=== PATIENT | female | born 1970 | race Caucasian/White ===

== ENCOUNTER 2017-09-04 13:11 | Inpatient (IN) | payer OTHER ==
[~2017-09-04] VITALS: Ht 157.5 cm; Wt 121.1 kg
[~2017-09-04 13:11] MED LIST: ABILIFY5 MG PO; ADVAIR 100/501 DISK IH; ALBUTEROL1 GM MC; ALDACTONE25 MG PO; ALDACTONE50 MG PO; ALPRAZOLAM ER3 MG PO; AMBIEN CR12.5 MG PO; CLOPIDOGREL75 MG PO; COREG12.5 M1 PO; COREG25 MG PO; CYCLOBENZAPRINE10 MG PO; FLEXERIL10 MG PO; FLONASE ALLERG9.9 ML BOTH NARES; LORATADINE10 M2 PO; LYRICA75 MG PO; NORVASC5 MG PO; OXYCODONE HCL10 MG PO; OXYCODONE HCL5 MG PO; OXYCODONE-APAP1 EACH PO; PERCOCET 5/31 TABLET PO; PLAVIX75 MG PO; PREDNISONE20 MG PO; PRINIVIL10 MG PO; PRINIVIL5 MG PO; PROAIR HFA8.5 GM IH; RANITIDINE HCL300 MG PO; SAPHRIS10 MG SL; SAPHRIS5 MG SL; SYMBICORT60 INHALAT IH; VENTOLIN HFA18 GM IH; VERAPAMIL ER100 MG PO; WELLBUTRIN SR200 MG PO; WELLBUTRIN100 MG PO; XANAX XR3 MG PO; XANAX0.5 MG PO; XANAX1 MG PO; ZOLPIDEM TART12.5 MG PO
[2017-09-04 13:58] LABS: BASOPHIL (%) 0.3 % (0-1); BASOPHIL COUNT 0.1 K/uL (0-0.1); EOSINOPHIL (%) 0.1 % (0-5); HEMATOCRIT 34.5 % (36.0-46.0); HEMOGLOBIN 11.5 G/DL (11.9-15.5); IMMATURE GRANULOCYTE (%) 0.7 % (0.0-0.7); LYMPHOCYTE (%) 9.3 % (15-42); LYMPHOCYTE COUNT 1.6 K/uL (1.0-2.8); MCH 29.9 PG (29.0-34.0); MCHC 33.3 G/DL (30.0-36.0); MCV 89.8 FL (83-99); MONOCYTE (%) 10.5 % (3-12); MONOCYTE COUNT 1.8 K/uL (0-0.8); NEUTROPHIL (%) 79.1 % (45-76); NEUTROPHIL COUNT 13.1 K/uL (1.8-6.4); PLATELET COUNT 195 K/uL (156-360); RBC DIS.WIDTH-CV 12.7 % (11.8-14.6); RBC DIS.WIDTH-SD 41.4 % (39-53); RED BLOOD COUNT 3.84 M/uL (3.80-5.20); WHITE BLOOD COUNT 16.6 K/uL (4.1-10.2)
[2017-09-04 14:04] LABS: INTER. NORMALIZED RATIO 1.3
[2017-09-04 14:07] LABS: PTT 36.3 SEC (25-37)
[2017-09-04 14:16] LABS: ALBUMIN 3.3 g/dL (3.2-4.8); CHLORIDE 97 mEq/L (99-109); POTASSIUM 4.2 mEq/L (3.7-5.4); SODIUM 128 mEq/L (136-147)
[2017-09-04 14:19] LABS: GLUCOSE 107 mg/dL (70-99); TOTAL PROTEIN 6.5 g/dL (6.4-8.3)
[2017-09-04 14:21] LABS: TOTAL BILIRUBIN 0.7 mg/dL (0.0-1.0)
[2017-09-04 14:22] LABS: ALKALINE PHOSPHATASE 78 IU/L (3-129); CREATININE 2.1 mg/dL (0.6-1.3); GFR ESTIMATE (CALCULATED) 27 mL/min/
[2017-09-04 14:23] LABS: UREA NITROGEN (BUN) 28 mg/dL (9-23)
[2017-09-04 14:24] LABS: AST (GOT) 10 IU/L (2-34)
[2017-09-04 14:25] LABS: ALT (GPT) 13 IU/L (3-49)
[2017-09-04 14:26] LABS: LIPASE 11 U/L (1.0-51.0)
[2017-09-04 14:47] LABS: APPEARANCE CLOUDY ((CLEAR)); BILIRUBIN NEGATIVE; BLOOD SMALL; COLOR AMBER ((YELLOW)); GLUCOSE (STRIP) NEGATIVE; KETONES NEGATIVE; LEUKOCYTES LARGE; NITRITE NEGATIVE; PROTEIN (STRIP) 30; SPECIFIC GRAVITY 1.013 (1.000-1.030); UROBILINOGEN 0.2 MG/DL (0.2-1.0)
[2017-09-04 14:49] LABS: TROP-I INTERPRETATION NEGATIVE; TROPONIN-I 0.01 ng/mL (0.0-0.30)
[2017-09-04 15:22] LABS: BACTERIA RARE /HPF; CALCIUM OXALATE CRYSTALS 1+ /HPF; CELLULAR CASTS 0-5 /LPF; EPITHELIAL CELLS 1+ /HPF; HYALINE CASTS TNTC /LPF; MUCUS TRACE /LPF; RED BLOOD CELLS 20-30 /HPF (0-5); UCUL ADDED? YES; WHITE BLOOD CELLS TNTC /HPF (0-5)
[2017-09-04] MEDS ORDERED: FLEXERIL10 MG PO (19:08)
[2017-09-04] MEDS ORDERED: CARVEDILOL25 MG PO (19:13)
[2017-09-04] MEDS ORDERED: ALPRAZOLAM0.5 MG PO (19:14)
[2017-09-04] MEDS ORDERED: SAPHRIS5 MG SL (19:15)
[2017-09-04] MEDS ORDERED: NARCAN4 MG NS (19:17)
[2017-09-04] MEDS ORDERED: OXYCODONE-APAP1 EAC6 PO (19:17)
[2017-09-04] MEDS ORDERED: LISINOPRIL10 MG PO (19:18)
[2017-09-04] MEDS ORDERED: SPIRONOLACTONE25 MG PO (19:19)
[2017-09-04] MEDS ORDERED: FLUTICASONE P15.8 ML BOTH NARES (19:19)
[2017-09-04 20:50] VITALS: BP 101/63
[2017-09-04 23:40] VITALS: BP 102/57
[2017-09-05 03:49] VITALS: BP 94/52
[2017-09-05 06:45] VITALS: BP 121/57
[2017-09-05 07:00] LABS: CHLORIDE 105 MEQ/L (99-109); GLUCOSE 100 mg/dL (70-99); POTASSIUM 4.4 MEQ/L (3.7-5.4); UREA NITROGEN (BUN) 23 mg/dL (9-23)
[2017-09-05 07:01] LABS: BASOPHIL (%) 0.4 % (0-1); EOSINOPHIL (%) 0.3 % (0-5); HEMATOCRIT 28.6 % (36.0-46.0); HEMOGLOBIN 9.5 G/DL (11.9-15.5); IMMATURE GRANULOCYTE (%) 0.4 % (0.0-0.7); LYMPHOCYTE COUNT 1.3 K/uL (1.0-2.8); MCH 30.1 PG (29.0-34.0); MCHC 33.2 G/DL (30.0-36.0); MCV 90.5 FL (83-99); MONOCYTE (%) 12.2 % (3-12); MONOCYTE COUNT 1.2 K/uL (0-0.8); NEUTROPHIL (%) 73.7 % (45-76); NEUTROPHIL COUNT 7.2 K/uL (1.8-6.4); PLATELET COUNT 165 K/uL (156-360); RBC DIS.WIDTH-CV 12.8 % (11.8-14.6); RBC DIS.WIDTH-SD 42.4 % (39-53); RED BLOOD COUNT 3.16 M/uL (3.80-5.20); WHITE BLOOD COUNT 9.8 K/uL (4.1-10.2)
[2017-09-05 07:03] LABS: CREATININE 1.5 MG/DL (0.6-1.3)
[2017-09-05 07:04] LABS: GFR ESTIMATE (CALCULATED) 39 mL/min/; SODIUM 138 MEQ/L (136-147)
[2017-09-05 09:42] LABS: FERRITIN 289 NG/ML (10-291)
[2017-09-05 10:25] VITALS: BP 101/64
[2017-09-05 10:31] LABS: IRON < 10 MCG/DL (35-150); TRANSFERRIN SATUR. 5 % (20-55)
[2017-09-05 11:21] LABS: FOLIC ACID (FOLATE) 5.3 NG/ML (5.0-22.0)
[2017-09-05 15:10] VITALS: BP 114/70
[2017-09-05 19:54] VITALS: BP 125/61
[2017-09-05 23:45] VITALS: BP 100/56
[2017-09-06 07:20] LABS: HEMATOCRIT 30.2 % (36.0-46.0); MCH 30.1 PG (29.0-34.0); MCHC 33.1 G/DL (30.0-36.0); PLATELET COUNT 197 K/uL (156-360); RBC DIS.WIDTH-CV 13.1 % (11.8-14.6); RBC DIS.WIDTH-SD 43.1 % (39-53); RED BLOOD COUNT 3.32 M/uL (3.80-5.20); WHITE BLOOD COUNT 6.1 K/uL (4.1-10.2)
[2017-09-06 08:01] LABS: GLUCOSE 93 mg/dL (70-99)
[2017-09-06 08:04] VITALS: BP 92/53
[2017-09-06 08:05] LABS: CREATININE 1.3 mg/dL (0.6-1.3); GFR ESTIMATE (CALCULATED) 46 mL/min/
[2017-09-06 08:06] LABS: UREA NITROGEN (BUN) 14 mg/dL (9-23)
[2017-09-06 08:11] LABS: SODIUM 139 mEq/L (136-147)
[2017-09-06 08:16] LABS: CHLORIDE 108 mEq/L (99-109)
[2017-09-07 00:11] VITALS: BP 98/62
[2017-09-07 06:15] LABS: HEMATOCRIT 30.7 % (36.0-46.0); HEMOGLOBIN 9.8 G/DL (11.9-15.5); MCH 29.3 PG (29.0-34.0); MCHC 31.9 G/DL (30.0-36.0); MCV 91.9 FL (83-99); PLATELET COUNT 220 K/uL (156-360); RBC DIS.WIDTH-CV 13.2 % (11.8-14.6); RED BLOOD COUNT 3.34 M/uL (3.80-5.20); WHITE BLOOD COUNT 6.7 K/uL (4.1-10.2)
[2017-09-07 06:38] LABS: CHLORIDE 105 MEQ/L (99-109); CREATININE 1.4 MG/DL (0.6-1.3); GFR ESTIMATE (CALCULATED) 43 mL/min/; GLUCOSE 99 mg/dL (70-99); POTASSIUM 4.8 MEQ/L (3.7-5.4); SODIUM 139 MEQ/L (136-147); UREA NITROGEN (BUN) 16 mg/dL (9-23)
[2017-09-07 07:05] VITALS: BP 122/58
[2017-09-07 07:50] VITALS: BP 120/58
[2017-09-07] MEDS ORDERED: FERROUS SULFAT325 MG PO (14:28)
== END 2017-09-07 17:35 | disposition home or self-care (01) | DRG 683 ==
LOC: EME 13:11 → EDOF 18:17 → 5EAST 18:17 → ENRESERV 18:33 → 5EAST 20:33
PROVIDERS: Emergency Medicine; Hospitalist; Physician Assistant
DX: N17.9 Acute kidney failure, unspecified (principal); Z68.42 Body mass index [BMI] 45.0-49.9, adult; N39.0 Urinary tract infection, site not specified; I42.0 Dilated cardiomyopathy; E86.0 Dehydration; I11.0 Hypertensive heart disease with heart failure; I50.9 Heart failure, unspecified; D64.9 Anemia, unspecified; I25.10 Atherosclerotic heart disease of native coronary artery without angina pectoris; E66.9 Obesity, unspecified; F17.200 Nicotine dependence, unspecified, uncomplicated; I25.2 Old myocardial infarction; I95.9 Hypotension, unspecified; E78.5 Hyperlipidemia, unspecified; I73.00 Raynaud's syndrome without gangrene
CPT/HCPCS: 71046; 74176; 80048; 80053; 81003; 82607; 82728; 82746; 83540; 83605; 83690; 84466; 84484; 85025; 85027; 85610; 85730; 87077; 87086; 87186; 93005; 99281; 99284; J0692; J0696; J1644; J2405; J3420; J7030; J7040; J7120

== ENCOUNTER 2017-09-10 09:42 | Day surgery (SDC) | payer OTHER ==
[~2017-09-10 09:42] MED LIST changes: +ALPRAZOLAM0.5 MG PO; +CARVEDILOL25 MG PO; +FERROUS SULFAT325 MG PO; +FLUTICASONE P15.8 ML BOTH NARES; +LISINOPRIL10 MG PO; +NARCAN4 MG NS; +OXYCODONE-APAP1 EAC6 PO; +SPIRONOLACTONE25 MG PO
== END 2017-09-10 18:00 | disposition home or self-care (01) ==
LOC: CATH 09:42
DX: I42.9 Cardiomyopathy, unspecified (principal); J44.9 Chronic obstructive pulmonary disease, unspecified; E66.01 Morbid (severe) obesity due to excess calories; Z68.42 Body mass index [BMI] 45.0-49.9, adult; I73.00 Raynaud's syndrome without gangrene; I73.1 Thromboangiitis obliterans [Buerger's disease]; Z87.891 Personal history of nicotine dependence; I10 Essential (primary) hypertension
CPT/HCPCS: C1769; C1887; C1894; J1644; J2250; J3010